=== PATIENT | female | born 1990 | race Caucasian/White ===

== ENCOUNTER 2017-03-19 01:14 | Emergency (ER) | payer OTHER ==
[~2017-03-19] VITALS: Ht 162.6 cm; Wt 57.0 kg
[~2017-03-19 01:14] MED LIST: MACR100C2 PO
[2017-03-19 01:15] VITALS: BP 141/94; PULSE 97; RESP 16; TEMP 98.2; O2SAT 100
[2017-03-19] MEDS ORDERED: birth control (01:24)
--- NOTE | 2017-03-19 01:26 | PD ---
HPI Chief Complaint: Cold / Flu Symptoms Time Seen by Provider: 01:25 Travel History International Travel<30 days: No Contact w/Intl Traveler<30days: No Traveled to known affect area: No History of Present Illness HPI 27 old female presents to emergency department for evaluation of sinus congestion and pressure as well as pressure in her ears. Patient's symptoms started approximately 3 weeks ago. They have only worsened in severity. Pressure is painful and constant. She believes that there is swelling in her nose. Denies any fever or chills. Denies any other symptoms at this time. PFSH Past Medical History Medical History: Denies Significant Hx Diminished Hearing: No ?: Not Past Surgical History Surgical History: No Previous Surgery Social History Alcohol Use: Yes (OCC) Tobacco Use: No Substance Use: No Allergies-Medications (Allergen,Severity, Reaction): Coded Allergies: No Known Allergies (Unverified Adverse Reaction, Unknown, 03/19/17) Reported Meds & Prescriptions Reported Meds & Active Scripts Active Mometasone Nasal Totz 50 Mcg/Act Totz 2 Totz EACH NARE DAILY Augmentin (Amoxicillin-Clavulanate) 875-125 Mg Tab 1 Tab PO BID 10 Days Reported [ control] Review of Systems Except as stated in HPI: all other systems reviewed are Neg Physical Exam Narrative GENERAL: Well-nourished, well-developed female patient in no acute distress. SKIN: Focused skin assessment warm/dry. HEAD: Normocephalic. MAxillary sinuses are tender to palpation. No mastoid tenderness. EARS: Bilateral pinnae and external canals appear within normal limits. Bilateral tympanic membranes without erythema, dullness or perforation. EYES: No scleral icterus. No injection or drainage. ENT: Mucosa pink and moist . Erythema without exudates. No uvular edema. No uvular, palatal, or tonsillar deviation. Airway patent. Nasal turbinates appear inflamed and reddened without nasal blood, purulent drainage or septal hematoma. NECK: Supple, trachea midline. No JVD or lymphadenopathy. CARDIOVASCULAR: Regular rate and rhythm without murmurs, gallops, or rubs. RESPIRATORY: Breath sounds equal bilaterally. No accessory muscle use. GASTROINTESTINAL: Abdomen soft, non-tender, nondistended. MUSCULOSKELETAL: No cyanosis, or edema. BACK: Nontender without obvious deformity. No CVA tenderness. Data Data Last Documented VS Vital Signs Date Time Temp Pulse Resp B/P (MAP) Pulse Ox O2 Delivery O2 Flow Rate FiO2 03/19/17 01:54 03/19/17 01:23 18 100 Room Air 03/19/17 01:15 98.2 97 Orders Orders Ed Discharge Order (03/19/17 01:29) MDM Medical Decision Making Medical Screen Exam Complete: Yes Emergency Medical Condition: Yes Medical Record Reviewed: Yes Differential Diagnosis Sinusitis versus rhinitis versus, cold versus allergies Narrative Course 27 old female presents to emergency department for evaluation. Physical findings are consistent with a sinusitis. Due to the duration of this, patient will be started on oral antibiotics. She is counseled on care and is encouraged to follow-up with primary care provider. She agrees to return immediately with any acute worsening of symptoms. Diagnosis Primary Impression: Sinusitis Qualified Codes: J01.00 - Acute maxillary sinusitis, unspecified Referrals: Primary Care Physician Patient Instructions: General Instructions, Sinusitis (ED) Departure Forms: Tests/Procedures, Work Release Enter return to work date: Mar 20, 2017 Additional Instructions: Humidified air may help to alleviate symptoms Follow-up with a primary care provider Return immediately with any acute worsening of symptoms Med/Other Pt SpecificInfo: Prescription(s) given Scripts Mometasone Nasal Totz (Mometasone Nasal Totz) 50 Mcg/Act Totz 2 SPRAY EACH NARE DAILY for Allergy Management, #1 BOTTLE 0 Refills Prov: Marita Gerber 03/19/17 Amoxicillin-Clavulanate (Augmentin) 875-125 Mg Tab 1 TAB PO BID for Infection for 10 Days, #20 TAB 0 Refills Prov: Marita Gerber 03/19/17 Disposition: 01 DISCHARGE HOME Condition: Stable Marita Gerber Mar 19, 2017 01:26
[2017-03-19] MEDS ORDERED: MOME1SPR2 EACH NARE (01:31)
[2017-03-19] MEDS ORDERED: AUGM875T3 PO (01:31)
== END 2017-03-19 01:53 | disposition home or self-care (01) ==
LOC: NEPD 01:14
DX: J01.00 Acute maxillary sinusitis, unspecified (principal)
CPT/HCPCS: 99284